=== PATIENT | female | born 1955 | race Caucasian/White ===

== ENCOUNTER → 2016-12-17 | Outpatient (CLI) | payer BC ==
[~2016-12-17] MED LIST: OSTEO BIFLEX; POTASSIUM OTC; VITAMIN B12
[2016-12-17 18:47] LABS: CHOLESTEROL/HDL RATIO 2.3
== END | disposition home or self-care (01) ==
LOC: C.LABPVFM 13:26
PROVIDERS: ATTEND Nurse Practitioner
DX: E78.5 Hyperlipidemia, unspecified (principal)

== ENCOUNTER → 2017-06-15 | Outpatient (CLI) | payer BC ==
[2017-06-15 17:59] LABS: BLOOD UREA NITROGEN 17 mg/dl (7-18); BUN/CREATININE RATIO 19.8 (10-20); CALCIUM 9.3 mg/dl (8.5-10.1); CARBON DIOXIDE 30 mmol/L (21-32); CHLORIDE 107 mmol/L (98-107); CHOLESTEROL 214 mg/dl (0-200); CREATININE 0.84 mg/dl (0.60-1.20); GLUCOSE 101 mg/dl (70-99); POTASSIUM 3.9 mmol/L (3.5-5.1); SODIUM 142 mmol/L (136-145); TRIGLYCERIDES 167 mg/dl (0-150); VERY LOW DENSITY LIPOPROT CALC 33 mg/dl
[2017-06-15 18:04] LABS: CHOLESTEROL/HDL RATIO 3.1; HDL CHOLESTEROL 69 mg/dl; LDL CHOLESTEROL CALCULATED 112 mg/dl
== END | disposition home or self-care (01) ==
LOC: C.LABPVFM 13:39
PROVIDERS: ATTEND Nurse Practitioner
DX: E78.5 Hyperlipidemia, unspecified (principal); I10 Essential (primary) hypertension

== ENCOUNTER → 2017-08-18 | Outpatient (CLI) | payer BC ==
[~2017-08-18] MED LIST changes: +GADAVIST IV PRN
[2017-08-18 09:55] LABS: BLOOD UREA NITROGEN 19 mg/dl (7-18); BUN/CREATININE RATIO 22.8 (10-20); CREATININE 0.84 mg/dl (0.60-1.20)
--- NOTE | 2017-08-18 14:14 | DIAGNOSTIC IMAGING REPORT ---
MRI OF THE BRAIN COMBO CLINICAL HISTORY: Dizziness. Paresthesias of the tongue. COMPARISON STUDY: CT of the brain dated 07/26/2012. TECHNIQUE: MRI of the brain was performed utilizing various T1 and T2-weighted sequences in the axial, sagittal, and coronal planes. Contrast-enhanced sequences were acquired following the administration of 7 cc of Gadavist. FINDINGS: Brain parenchyma: There is a mass in the posterior fossa seen on axial image #7. 1.9 x 1.9 X 1.7 cm well-circumscribed homogeneous enhancing extra-axial lesion in the left cerebellopontine angle. This shows an enhancing tail extending into the internal auditory canal. This causes mild mass effect on the cerebellum and brainstem. No additional enhancing lesion is seen. The brain parenchyma is otherwise normal in appearance. There is no hemorrhage or midline shift. There is no restricted diffusion to suggest acute ischemia. Breaux-white matter differentiation is preserved. No extra-axial fluid collection is seen. The cerebellar tonsils are normal in configuration. Ventricles, sulci, and cisterns: Normal in configuration. Pituitary and sella: Unremarkable. Intracranial vasculature: Normal flow voids are maintained at the skull base. Orbits: The bony orbits are grossly intact. Orbital contents are normal in appearance. Sinuses and mastoids: Clear. Calvarium: Unremarkable. Cervical cord: Partially visualized cervical spinal cord is normal in morphology and signal intensity. IMPRESSION: 1. There is a 1.9 x 1.9 cm lobulated/well-circumscribed enhancing mass lesion in the left cerebellopontine angle which extends into the left internal auditory canal. This causes mild local mass effect, and likely represents an acoustic neuroma. The top differential consideration is a meningioma. 2. No additional enhancing lesion is seen. 3. There is no hemorrhage or evidence of acute ischemia. Electronically signed by: Robson Rodriguez M.D. 08/18/2017 2:12 PM Dictated Date/Time: 08/18/2017 2:06 PM
== END | disposition home or self-care (01) ==
LOC: C.MRIBC 12:47
PROVIDERS: ATTEND Family Medicine Adult Medicine
DX: R44.8 Other symptoms and signs involving general sensations and perceptions (principal); R42 Dizziness and giddiness

== ENCOUNTER → 2017-12-30 | Outpatient (CLI) | payer BC ==
[~2017-12-30] MED LIST changes: -GADAVIST IV PRN
[2017-12-30 14:02] LABS: ALBUMIN 3.5 gm/dl (3.4-5.0); ALT/SGPT 27 U/L (12-78); AST/SGOT 15 U/L (15-37); BLOOD UREA NITROGEN 21 mg/dl (7-18); CARBON DIOXIDE 30 mmol/L (21-32); CREATININE 0.82 mg/dl (0.60-1.20); GLUCOSE 113 mg/dl (70-99); POTASSIUM 3.7 mmol/L (3.5-5.1); SODIUM 140 mmol/L (136-145)
[2017-12-30 14:04] LABS: ALKALINE PHOSPHATASE 74 U/L (45-117); CHOLESTEROL 182 mg/dl (0-200); LDL CHOLESTEROL CALCULATED 102 mg/dl; TOTAL PROTEIN 7.1 gm/dl (6.4-8.2)
== END | disposition home or self-care (01) ==
LOC: C.LABPVFM 09:09
PROVIDERS: ATTEND Family Medicine
DX: E78.5 Hyperlipidemia, unspecified (principal); E53.8 Deficiency of other specified B group vitamins